=== PATIENT | male | born 1960 | race African-American/Black ===

== ENCOUNTER 2019-06-28 07:30 | Inpatient (IN) | payer OTHER ==
[2019-06-28] VITALS (7 sets, daily range): BP systolic 120–152; BP diastolic 86–95
[~2019-06-28] VITALS: Ht 182.9 cm; Wt 77.1 kg
--- NOTE | ~2019-06-28 | HC ---
[facility] [address] [place] [address] CONSULTATION Name: SHEN SIDHU Room #: 362-P ADM IN M.R.#: [id number] Admission: 06/28/19 Attend Phys: Zeyad Shahid MD Discharge: Date of : 56 Report #: [id number] THIS REPORT FOR: //name// CC: Zeyad YOUNG unknown DATE OF SERVICE: 07/02/2019 HISTORY OF PRESENT ILLNESS: The patient is a 59-year-old -[place] male who lives up in [place], has been drinking a fifth of vodka per day. Daughter brought him to [place] from [place] as he was having problems with nausea, vomiting, weight loss and he was admitted to [facility]. He has been diagnosed with acute pancreatitis and alcoholic hepatitis, toxic metabolic encephalopathy, alcohol withdrawal, pancytopenia. Psychiatry has been involved in assisting with the withdrawal process. Encouraging him to try to increase his p.o. intake. We are seeing him in rehabilitation medicine consultation. PAST MEDICAL HISTORY: Includes chronic back pain. MEDICATIONS: Please see the full medication listing. SOCIAL HISTORY: Lives alone, house apparently a split level, noted to be , increased alcohol usage. Family had not heard from him and daughter went to check in on him. Goals is to hopefully stay with her daughter here in the [place] if he can take care of himself with minimal assistance per case management note. REVIEW OF SYSTEMS: No current complaints of chest pain, shortness of breath or abdominal discomfort. PHYSICAL EXAMINATION: GENERAL: A 59-year-old slender -Uk[place] male in no obvious distress. He was unable to tell me the city he was in, although he knew he was in the hospital. He could tell me about living in [place]. VITAL SIGNS: Temperature of 97.4, pulse 73, respirations 18, blood pressure 141/103. He will follow basic 1-step commands, although with a definite latency. EXTREMITIES: He does have tremulousness with tremors of both upper extremities. Definite decreased insight. Upper extremity range of motion appeared functional. Strength is probably a grade 3+/5. Lower extremity range of motion appeared functional. Strength is probably a grade 3+/5. He is mod assist, sit to stand, and was able to walk 3 steps max assist. ASSESSMENT: A 59-year-old -[place] male with the following problem list: 1. Toxic metabolic encephalopathy. [address] [address] CONSULTATION Name: SHEN SIDHU Room #: 362-P [facility] IN ..#: [id number] Admission: 06/28/19 Attend Phys: Zeyad Shahid MD Discharge: Date of : 56 Report #: [id number] 2. Acute alcohol withdrawal. 3. Acute pancreatitis. 4. Alcoholic hepatitis. 5. Significant generalized weakness and debilitation. 6. Chronic back pain. 7. 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 PLAN: The patient is being monitored for alcohol withdrawal. He had some problems with agitation and is verbalized that he wanted to leave, although he has obvious decreased insight. At this point, we will follow along with you regarding his rehab therapy needs. Thank you for asking us to assist in this patient's care. By: [id number] Deandre Marroquin MD /PMT
[2019-06-28] MEDS ORDERED: BACLOFEN5 MG PO (07:36)
[2019-06-28] MEDS ORDERED: BUSPIRONE HCL10 MG PO (07:36)
[2019-06-28 08:13] LABS: ABSOLUTE NEUTROPHILS 2.8 thou/uL (1.4-8.2); BASOPHILS 0.5 % (0.0-2.0); EOSINOPHILS 0.2 % (0.0-3.0); HEMATOCRIT 38.2 % (42.0-52.0); HEMOGLOBIN 12.9 gm/dL (14.0-18.0); LYMPHOCYTES 20.3 % (24.0-44.0); MCH 33.1 pg (26.0-34.0); MCHC 33.8 g/dL (28.0-37.0); MCV 97.9 fL (80.0-100.0); MONOCYTES 4.8 % (1.0-8.0); POLYS 74.2 % (36.0-66.0); RDW 14.2 % (10.5-14.5); WBC 3.8 thou/uL (4.0-11.0)
[2019-06-28 08:20] LABS: ANION GAP 12 mmol/L (7-16); BUN 12 mg/dL (7-18); CALCIUM 10.2 mg/dL (8.5-10.1); CHLORIDE 91 mmol/L (98-107); CO2 29 mmol/L (21-32); CREATININE 1.1 mg/dL (0.7-1.3); GLUCOSE 96 mg/dL (74-106); POTASSIUM 3.6 mmol/L (3.5-5.1); SODIUM 132 mmol/L (136-145)
[2019-06-28 08:30] LABS: LIPASE 813 U/L (73-393); SGOT 156 U/L (15-37); SGPT 138 U/L (30-65); TOTAL BILIRUBIN 3.7 mg/dL (<0.1-1.0); TOTAL PROTEIN 8.3 g/dL (6.4-8.2); TROPONIN-I <0.06 ng/mL (<0.06)
[2019-06-28 08:44] LABS: MAGNESIUM 1.6 mg/dL (1.8-2.4)
[2019-06-28 09:24] LABS: PLATELET COUNT 58 thou/uL (150-400)
[2019-06-28 09:48] LABS: PHOSPHORUS 2.9 mg/dL (2.5-4.9)
[2019-06-28 09:51] LABS: DIRECT BILIRUBIN 0.9 mg/dL (<0.1-0.2); TOTAL BILIRUBIN 3.6 mg/dL (<0.1-1.0)
[2019-06-28 09:56] LABS: URINE BLOOD 1+ (Negative); URINE CLARITY CLEAR; URINE GLUCOSE-RANDOM* NEGATIVE (Negative); URINE KETONES 1+ (Negative); URINE LEUKOCYTES-REFLEX NEGATIVE (Negative); URINE PROTEIN (DIPSTICK) TRACE (Negative); URINE SPECIFIC GRAVITY 1.015 (1.005-1.035)
[2019-06-28 10:01] LABS: URINE NITRITE-REFLEX POSITIVE (Negative)
[2019-06-28 10:02] LABS: URINE COLOR ORANGE
[2019-06-28 10:05] LABS: AMP/METHAMP Negative (Negative); BARBITURATES Negative (Negative); BENZODIAZEPINES Negative (Negative); COCAINE Negative (Negative); METHADONE Negative (Negative); OPIATES Negative (Negative); PCP Negative (Negative)
[2019-06-28 10:22] LABS: FOLIC ACID 9.9 ng/mL (8.6-58.9)
[2019-06-28 10:48] LABS: ICTOTEST (BILI CONFIRMATORY) Positive (Negative); URINE BILIRUBIN 2+ (Negative)
[2019-06-28 10:52] LABS: CASTS None Seen /LPF (None Seen); CRYSTALS None Seen /LPF (None Seen); SQUAMOUS 0-3 Few /LPF (0-3); URINE RBC 0-2 Rare /HPF (0-2); URINE WBC-REFLEX 6-15 Few /HPF (0-5)
[2019-06-28 10:53] LABS: BACTERIA-REFLEX 1-9 Few /HPF (None Seen)
[2019-06-28] MEDS ORDERED: EXCEDRIN MIGRA1 EAC1 PO (11:32)
--- NOTE | 2019-06-28 12:25 | EKG ---
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1960 Requested By: Darell Lockwood Order Number: [id number] MD: Zechariah Varghese Measurements Intervals [place] Rate: 86 P: 27 MA: 144 QRS: 61 QRSD: 83 T: 75 QT: 379 QTc: 454 Interpretive Statements Sinus rhythm Consider left ventricular hypertrophy Baseline wander in lead(s) V1 No previous ECG available for comparison Electronically Signed On 06-28-2019 12:24:53 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
[2019-06-29 03:54] LABS: WBC 2.7 thou/uL (4.0-11.0)
[2019-06-29 03:57] LABS: HEMOGLOBIN 11.1 gm/dL (14.0-18.0); MCH 33.3 pg (26.0-34.0); MCHC 33.6 g/dL (28.0-37.0); MCV 99.1 fL (80.0-100.0); RBC 3.33 mil/uL (4.50-6.00); RDW 14.1 % (10.5-14.5)
[2019-06-29 04:19] VITALS: BP 129/91
[2019-06-29 04:21] LABS: ALBUMIN 3.3 g/dL (3.4-5.0); CALCIUM 9.2 mg/dL (8.5-10.1); CREATININE 0.8 mg/dL (0.7-1.3); TOTAL BILIRUBIN 2.1 mg/dL (<0.1-1.0); TOTAL PROTEIN 6.6 g/dL (6.4-8.2)
[2019-06-29 07:50] VITALS: BP 146/99
--- NOTE | 2019-06-29 10:29 | EKG ---
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1960 Requested By: Darell Lockwood Order Number: [id number] MD: Zechariah Varghese Measurements Intervals [place] Rate: 89 P: -16 TN: 151 QRS: 67 QRSD: 79 T: 69 QT: 388 QTc: 473 Interpretive Statements Sinus rhythm Nonspecific ST segment abnormalities Baseline wander in lead(s) V1 Compared to ECG 06/28/2019 08:02:29 ST (T wave) deviation now present Electronically Signed On 06-29-2019 10:28:44 MANAGER MATERIAL by Zechariah Varghese [email or web address] <ELECTRONICALLY SIGNED> By: Zechariah Varghese MD 06/29/19 1028 45 Zechariah Varghese MD /SARATH
[2019-06-29 11:15] VITALS: BP 156/111
[2019-06-29 15:19] VITALS: BP 130/91
[2019-06-29 19:08] VITALS: BP 140/105
[2019-06-29 23:00] VITALS: BP 127/98
[2019-06-30 03:49] VITALS: BP 137/95
[2019-06-30 06:51] LABS: CALCIUM 9.3 mg/dL (8.5-10.1); CREATININE 0.7 mg/dL (0.7-1.3); MAGNESIUM 1.6 mg/dL (1.8-2.4); PHOSPHORUS 3.8 mg/dL (2.5-4.9)
[2019-06-30 06:53] LABS: POTASSIUM 2.9 mmol/L (3.5-5.1)
[2019-06-30 07:42] VITALS: BP 141/100
[2019-06-30 11:58] VITALS: BP 148/98
[2019-06-30 14:31] LABS: MAGNESIUM 2.5 mg/dL (1.8-2.4); POTASSIUM 3.5 mmol/L (3.5-5.1)
[2019-06-30 16:30] VITALS: BP 153/110
[2019-06-30 20:26] VITALS: BP 110/84
[2019-07-01 05:25] VITALS: BP 134/101
[2019-07-01 05:31] LABS: HEMATOCRIT 35.7 % (42.0-52.0); HEMOGLOBIN 11.6 gm/dL (14.0-18.0); MCH 32.4 pg (26.0-34.0); MCHC 32.5 g/dL (28.0-37.0); MCV 99.7 fL (80.0-100.0); RBC 3.59 mil/uL (4.50-6.00); RDW 13.9 % (10.5-14.5); WBC 4.2 thou/uL (4.0-11.0)
[2019-07-01 05:39] LABS: CALCIUM 8.7 mg/dL (8.5-10.1); CREATININE 0.7 mg/dL (0.7-1.3); MAGNESIUM 1.9 mg/dL (1.8-2.4); POTASSIUM 3.7 mmol/L (3.5-5.1)
[2019-07-01 07:47] VITALS: BP 136/99
[2019-07-01 11:27] VITALS: BP 134/98
[2019-07-01 15:30] VITALS: BP 126/90
[2019-07-01 19:52] VITALS: BP 132/93
[2019-07-02 04:29] VITALS: BP 136/97
[2019-07-02 07:31] VITALS: BP 141/103
[2019-07-02 11:30] VITALS: BP 115/79
[2019-07-02 16:38] VITALS: BP 149/101
[2019-07-02 19:35] VITALS: BP 130/77
[2019-07-03 04:40] VITALS: BP 122/79
[2019-07-03 07:31] VITALS: BP 147/100
[2019-07-03 11:40] VITALS: BP 133/80
[2019-07-03 15:28] VITALS: BP 126/84
[2019-07-03 16:31] LABS: ALBUMIN 2.6 g/dL (3.4-5.0); CALCIUM 8.6 mg/dL (8.5-10.1); CREATININE 0.9 mg/dL (0.7-1.3); MAGNESIUM 1.5 mg/dL (1.8-2.4); POTASSIUM 3.4 mmol/L (3.5-5.1); TOTAL BILIRUBIN 0.7 mg/dL (<0.1-1.0); TOTAL PROTEIN 5.5 g/dL (6.4-8.2)
[2019-07-03 20:54] VITALS: BP 142/96
[2019-07-04 04:28] VITALS: BP 142/98
[2019-07-04 07:34] VITALS: BP 163/102
[2019-07-04 16:25] VITALS: BP 137/93; BP 181/93
[2019-07-04 19:10] VITALS: BP 141/84
[2019-07-05 04:19] VITALS: BP 145/90
[2019-07-05 07:35] VITALS: BP 150/96
[2019-07-05] MEDS ORDERED: PRENATAL PO (10:51)
[2019-07-05] MEDS ORDERED: ACETAMINOPHEN325 M1 PO (10:51)
[2019-07-05] MEDS ORDERED: VITAMIN B-1100 M2 PO (10:51)
[2019-07-05] MEDS ORDERED: LORAZEPAM 1 MG T1 MG PO (10:51)
[2019-07-05] MEDS ORDERED: PEPCID20 MG PO (10:51)
[2019-07-05 13:31] VITALS: BP 150/96
== END 2019-07-05 14:06 | disposition home or self-care (01) | DRG 432 ==
LOC: ER 07:30 → 3W 09:00 → EROBS 09:00 → 3W 10:34
PROVIDERS: Emergency Medicine; Internal Medicine; ADMIT Hospitalist
DX: K70.10 Alcoholic hepatitis without ascites (principal); G92 Toxic encephalopathy; K85.90 Acute pancreatitis without necrosis or infection, unspecified; D61.82 Myelophthisis; E46 Unspecified protein-calorie malnutrition; G89.29 Other chronic pain; M54.9 Dorsalgia, unspecified; Z60.2 Problems related to living alone; R53.81 Other malaise; F17.210 Nicotine dependence, cigarettes, uncomplicated; R62.7 Adult failure to thrive; E87.6 Hypokalemia; Z53.29 Procedure and treatment not carried out because of patient's decision for other reasons; R73.9 Hyperglycemia, unspecified; F10.129 Alcohol abuse with intoxication, unspecified; Y90.9 Presence of alcohol in blood, level not specified; Z79.899 Other long term (current) drug therapy; Z79.82 Long term (current) use of aspirin; Z68.23 Body mass index [BMI] 23.0-23.9, adult; Z71.41 Alcohol abuse counseling and surveillance of alcoholic
CPT/HCPCS: 10080; 10879